=== PATIENT | male | born 1935 | race Caucasian/White ===

== ENCOUNTER → 2017-03-05 | Day surgery (SDC) | payer MEDICARE, BC ==
[~2017-03-05] VITALS: Ht 167.6 cm; Wt 66.7 kg
[~2017-03-05] MED LIST: ASPIRIN EC81 MG PO; FLOMAX0.4 MG PO; GLUCOSAMINE CH1 EAC2 PO; HYGROTON25 MG PO; NORCO 5-325 TA1 EACH PO; NORVASC5 MG PO; ONE DAILY1 EACH PO; PRILOSEC20 MG PO
--- NOTE | ~2017-03-05 | OR ---
PATIENT'S NAME: CARLY ALFORD [facility] AGE: 81 Y [address] ROOM: [place] [id number] [place] [facility] [place]: 03[place]05/[place] OR/Procedure Report DISCHARGE DATE: FAMILY PHYSICIAN: Herb Tomlin MD ATTENDING PHYSICIAN: Josue Stafford SURGEON: Josue Stafford DO [employer]: DATE OF PROCEDURE: 03/05/2017 PREOPERATIVE DIAGNOSIS: 1. Mediastinal adenopathy with PET positive nodes. 2. History of adenocarcinoma of the prostate. POSTOPERATIVE DIAGNOSIS: 1. Mediastinal adenopathy with PET positive nodes. 2. History of adenocarcinoma of the prostate with frozen section indicating benign lymphoid tissue. PROCEDURE: Mediastinoscopy with biopsy of multiple 4R lymph node groups as directed by PET scan. BRIEF HISTORY: Mr. Alford is an 81-year-old white male with above-noted diagnosis who has been brought to the operative suite today after informed consent was obtained for this procedure. He was intubated with a single-lumen endotracheal tube and sterilely prepped and draped in usual fashion. A 2.5 cm curvilinear incision was made one fingerbreadth above the suprasternal notch. This incision was carried through the platysma, identifying the pretracheal fascia, and we entered the anterior mediastinum bluntly and mediastinoscope was advanced identifying the area of concern, which was just at the level of the bifurcation slightly to the right of this multiple lymph nodes biopsied from this area. Electrocautery is used for hemostasis. Specimens were sent for frozen and permanent section. Frozen section yielded benign lymphoid tissue. Mediastinoscope was withdrawn. Strap muscles were then approximated with 2-0 Vicryl, platysma closed with 2-0 Vicryl, and skin with 4-0 Monocryl. The patient tolerated the procedure well. DO FRANCK CHAPMAN/stivenl /[id number] d: 03/05/172099 t: 03/06/17 1042, OPERATIVE SUMMARY
[2017-03-05 06:34] LABS: BASOPHIL # 0.1 K/uL (0.0-0.2); BASOPHIL % 1.4 %; EOSINOPHIL # 0.9 K/uL (0.0-0.5); EOSINOPHIL % 9.8 %; HEMOGLOBIN 14.4 g/dL (11.0-16.0); IMMATURE GRANULOCYTE # 0.1 K/uL (0.0-0.3); LYMPHOCYTE # 2.7 K/uL (0.8-4.0); LYMPHOCYTE % 28.8 %; MCHC 34.3 gm/dL (32.0-36.5); MCV 84.7 fl (83.0-98.0); MONOCYTE % 11.2 %; MPV 10.4 fl (9.4-12.4); NEUTROPHIL # (ANC) 4.4 K/uL (1.4-9.0); NEUTROPHIL % 47.8 %; NRBC % 0 /100WBC (0-0.00); PLATELET COUNT 318 K/uL (150-450); RBC 4.96 M/uL (3.50-5.50); RDW-CV 13.8 % (11.9-14.6); WBC 9.2 K/uL (4.0-11.0)
[2017-03-05 06:43] LABS: INR - (THERAPEUTIC) 0.98 (0.92-1.07); PROTIME 10.3 SECONDS (9.8-11.4)
[2017-03-05 06:46] LABS: ALBUMIN 3.6 gm/dL (3.5-5.0); ANION GAP 10.3 (10.0-19.0); BLOOD UREA NITROGEN 32 mg/dL (6-24); CALCIUM 9.3 mg/dL (8.5-10.5); CHLORIDE 100 mMol/L (96-110); CO2 32 mMol/L (22-32); CREATININE 0.9 mg/dL (0.6-1.3); ESTIMATED GFR (MDRD EQUATION) > 60; POTASSIUM 3.3 mMol/L (3.7-5.1); SODIUM 139 mMol/L (135-145)
== END | disposition disaster alternative care site (69) ==
LOC: GPOC 03-04 09:00 → GSDC 05:43 → GPOC 06:00
PROVIDERS: Thoracic Surgery (Cardiothoracic Vascular Surgery)
PROC: 07B74ZX Excision of Thorax Lymphatic, Percutaneous Endoscopic Approach, Diagnostic (ICD-10-PCS; principal; 2017-03-05)
DX: C77.1 Secondary and unspecified malignant neoplasm of intrathoracic lymph nodes (principal); M19.90 Unspecified osteoarthritis, unspecified site; K21.9 Gastro-esophageal reflux disease without esophagitis; I10 Essential (primary) hypertension; Z85.46 Personal history of malignant neoplasm of prostate; Z98.890 Other specified postprocedural states; Z79.82 Long term (current) use of aspirin; Z79.899 Other long term (current) drug therapy
CPT/HCPCS: J0690; J1100; J1644; J2001; J2250; J2405; J7120